=== PATIENT | male | born 1990 | race Caucasian/White ===

== ENCOUNTER 2021-03-21 20:53 | Emergency (ER) | payer OTHER ==
[2021-03-22] MEDS ORDERED: IBU800 MG PO (00:43)
== END 2021-03-22 01:26 | disposition home or self-care (01) ==
LOC: ER1 20:53
DX: M54.16 Radiculopathy, lumbar region (principal)
CPT/HCPCS: 72131; 73522; 99284

== ENCOUNTER → 2022-02-01 | Emergency (ER) | payer OTHER ==
[~2022-02-01] MED LIST: IBU800 MG PO
== END | disposition home or self-care (01) ==
LOC: ER1 20:52
DX: I10 Essential (primary) hypertension (principal); J02.9 Acute pharyngitis, unspecified; Z88.0 Allergy status to penicillin; Z88.2 Allergy status to sulfonamides; Z88.6 Allergy status to analgesic agent; Z88.8 Allergy status to other drugs, medicaments and biological substances; Z88.1 Allergy status to other antibiotic agents; F17.210 Nicotine dependence, cigarettes, uncomplicated
CPT/HCPCS: 87081; 87880; 99283